=== PATIENT | male | born 1990 ===

== ENCOUNTER 2016-09-30 17:03 | Emergency (ER) | payer SELFPAY ==
[2016-09-30 17:51] VITALS: BP 130/86
--- NOTE | 2016-09-30 18:21 | UC ---
Hand/Wrist HPI - HPI Summary HPI Summary: LEFT INDEX FINGER AT CUTICLE (ULNAR ASPECT) FOR TWO DAYS HAS HAS REDNESS AND SWELLING. NO DISCHARGE. IS A NAIL BITER, AND HAD A HANGNAIL 3 DAYS AGO. TETNAUS WAS UPDATED THIS YEAR. - History Of Current Complaint Chief Complaint: UCUpperExtremity Stated Complaint: FINGER/HAND INFECTION Time Seen by Provider: 09/30/16 17:47 Hx Obtained From: Patient Onset/Duration: Gradual Onset, Lasting Days, Still Present Severity Initially: Mild Severity Currently: Moderate Character Of Pain: Dull, Aching Aggravating Factor(s): Other - TOUCH Alleviating: Nothing Related History: Dominant Hand Right - Allergies/Home Medications Allergies/Adverse Reactions: Allergies Allergy/AdvReac Type Severity Reaction Status Date / Time No Known Allergies Allergy Verified 09/30/16 17:51 Home Medications: Home Medications Escitalopram (NF) [Lexapro 5 mg (NF)] 5 mg PO DAILY 09/30/16 [History Confirmed 09/30/16] Gabapentin CAP(*) [Neurontin 300 CAP(*)] 300 mg PO BID 09/30/16 [History Confirmed 09/30/16] PMH/Surg Hx/FS Hx/Imm Hx Previously Healthy: Yes - Surgical History Surgical History: None - Family History Known Family History: Negative: Blood Disorder - Social History Occupation: Employed Full-time Lives: With Family Alcohol Use: Occasionally Substance Use Type: None Smoking Status (MU): Never Smoked Tobacco - Immunization History Most Recent Tetanus Shot: UTD received one month ago. Review of Systems Constitutional: Fever Skin: Other - RED TENDER SWOLLEN AREA LEFT INDEX FINGER Eyes: Negative ENT: Negative Respiratory: Negative Cardiovascular: Negative Gastrointestinal: Negative Genitourinary: Negative Motor: Negative Neurovascular: Negative Musculoskeletal: Negative Neurological: Negative Psychological: Negative All Other Systems Reviewed And Are Negative: Yes Physical Exam Triage Information Reviewed: Yes Appearance: Well-Appearing, No Pain Distress, Well-Nourished Vital Signs: Initial Vital Signs Temp 99.1 F 09/30/16 17:46 Pulse 76 09/30/16 17:46 Resp 18 09/30/16 17:46 BP 130/86 09/30/16 17:46 Pulse Ox 100 09/30/16 17:46 Vital Signs Reviewed: Yes Eye Exam: Normal ENT Exam: Normal ENT: Positive: Normal ENT inspection, TMs normal Dental Exam: Normal Neck exam: Normal Neck: Positive: Supple Respiratory Exam: Normal Respiratory: Positive: Chest non-tender, Lungs clear, Normal breath sounds, No respiratory distress Cardiovascular Exam: Normal Cardiovascular: Positive: RRR, No Murmur Abdominal Exam: Normal Musculoskeletal Exam: Normal Musculoskeletal: Positive: Strength Intact, ROM Intact, Edema @ - LEFT INDEX FINGER Neurological Exam: Normal Psychological Exam: Normal Skin: Positive: Other - ERYTHEMA LEFT INDEX FINGER Hand/Wrist Course/Dx - Differential Dx/Diagnosis Differential Diagnosis/HQI/PQRI: Felon, Gout, Paronychia, Sprain, Strain Provider Diagnoses: LEFT SECOND FINGER PARONYCHIA Discharge - Discharge Plan Condition: Stable Disposition: HOME Prescriptions: Amoxicillin/Clavulanate TAB* [Augmentin TAB 875*] 875 mg PO BID #20 tab Patient Education Materials: Paronychia (ED), Cellulitis (ED) Referrals: Johny Garcia MD [Primary Care Provider] -
== END 2016-09-30 18:25 | disposition home or self-care (01) ==
LOC: UCEAST 17:03
DX: L03.012 Cellulitis of left finger (principal)
CPT/HCPCS: 99202; G0463